=== PATIENT | female | born 1990 | race Caucasian/White ===

== ENCOUNTER → 2023-06-30 15:58 | Outpatient (REF) | payer OTHER, SELFPAY | LOC: PNTC 15:58 | PROVIDERS: ATTENDING PHYSICIAN Obstetrics & Gynecology | DX: O26.23 Pregnancy care for patient with recurrent pregnancy loss, third trimester (principal) | CPT/HCPCS: 76816 ==

== ENCOUNTER 2023-08-11 18:50 | Inpatient (IN) | payer OTHER, SELFPAY ==
[2023-08-11 19:19] VITALS: BMI 28.9
[2023-08-11 19:21] VITALS: BP 117/78
[2023-08-11] MEDS: CYTOTEC 25 MICROGRAM VAG (20:03)
[2023-08-11 20:20] LABS: % Basophils 0.2 % (0-2); % Eosinophils 1.1 % (0-6); % Immature Granulocytes 0.6 % (0-0.5); % Lymphocytes 16.7 % (20.5-51.1); % Monocytes 6.1 % (1.7-9.3); % Neutrophils 75.3 % (42.2-75.2); Absolute Eosinophils 0.1 10^3/uL (0-0.7); Absolute Immature Granulocytes 0.1 10^3/uL (0-0.05); Absolute Lymphocytes 1.7 10^3/uL (1.2-3.4); Absolute Monocytes 0.6 10^3/uL (0.1-0.6); Absolute Neutrophils 7.6 10^3/uL (1.4-6.5); Hematocrit 32.8 % (37.0-47.0); Hemoglobin 11.5 g/dL (12.0-16.0); Mean Corp Hgb Conc. 35.1 g/dL (33.0-37.0); Mean Corpuscular Hgb 31.3 pg (27.0-31.0); Mean Corpuscular Volume 89.1 fL (81.0-99.0); Mean Platelet Volume 11.4 fL (7.4-10.4); Nucleated Red Blood Cells % 0 %; Platelet Count 154 10^3/uL (130-400); Red Blood Cell Count 3.68 10^6/uL (4.20-5.40); Red Cell Dist. Width 13.2 % (11.5-14.5); White Blood Cell Count 10.1 10^3/uL (4.8-10.8)
[2023-08-12] MEDS: CYTOTEC 50 MICROGRAM PO (00:17)
[2023-08-12] MEDS: MORPHINE SULFATE 2 MG IV (01:03)
[2023-08-12] MEDS: LR 1000 IV (01:04)
[2023-08-12] MEDS: SUBLIMAZE 100 MCG EPIDURAL (02:20)
[2023-08-12] MEDS: FENTANYL/BUPIVACAINE 100 EPIDURAL (02:20)
[2023-08-12] MEDS: PENICILLIN 110 UNITS IV (02:33)
[2023-08-12] MEDS: PITOCIN 30 UNITS/NSS 500 ML IV (06:08)
[2023-08-12] MEDS: CYTOTEC PO (06:08)
[2023-08-12] MEDS: PRENATAL PLUS PO (18:53)
[2023-08-12] MEDS: MOTRIN 600 MG PO (20:19)
[2023-08-13 05:14] LABS: Hematocrit 32.2 % (37.0-47.0)
[2023-08-13] MEDS: MOTRIN 600 MG PO (09:36)
[2023-08-13] MEDS: PRENATAL PLUS 1 TABLET PO (09:36)
[2023-08-13] MEDS: HYPERRHO S-D 1500 UNIT IM (09:36)
[2023-08-13] MEDS: SENOKOT-S 1 TABLET PO (12:27)
[2023-08-15 12:14] LABS: Syphilis/T. pallidum Ab Reflex Negative (Negative)
== END 2023-08-13 12:41 | disposition home or self-care (01) | DRG 806 ==
LOC: LDRP 18:50
PROVIDERS: Obstetrics & Gynecology; ADMITTING PHYSICIAN Obstetrics & Gynecology
PROC: 3E0P7VZ Introduction of Hormone into Female Reproductive, Via Natural or Artificial Opening (ICD-10-PCS; 2023-08-11)
PROC: 3E033VJ Introduction of Other Hormone into Peripheral Vein, Percutaneous Approach (ICD-10-PCS; 2023-08-11)
PROC: 10E0XZZ Delivery of Products of Conception, External Approach (ICD-10-PCS; 2023-08-12)
PROC: 3E0DXGC Introduction of Other Therapeutic Substance into Mouth and Pharynx, External Approach (ICD-10-PCS; 2023-08-12)
PROC: 3E0234Z Introduction of Serum, Toxoid and Vaccine into Muscle, Percutaneous Approach (ICD-10-PCS; 2023-08-13)
DX: O48.0 Post-term pregnancy (principal); Q60.2 Renal agenesis, unspecified; Z37.0 Single live birth; Z3A.40 40 weeks gestation of pregnancy; Z23 Encounter for immunization; O99.824 Streptococcus B carrier state complicating childbirth
CPT/HCPCS: 36415; 85014; 85018; 85025; 85461; 86780; 86850; 86870; 86900; 86901; J2790

== ENCOUNTER → 2025-03-03 09:23 | Outpatient (REF) | payer OTHER, SELFPAY | LOC: WDC 09:23 | PROVIDERS: ATTENDING PHYSICIAN Physician Assistant | DX: R22.2 Localized swelling, mass and lump, trunk (principal) | CPT/HCPCS: 76642; 77062; 77066 ==